=== PATIENT | male | born 1960 | race Caucasian/White ===

== ENCOUNTER 2017-08-02 18:08 | Emergency (ER) | payer MEDICARE, MEDICAID ==
[~2017-08-02] VITALS: Ht 170.2 cm; Wt 60.0 kg
[2017-08-02] MEDS ORDERED: FURO-152 PO (18:13)
[2017-08-02] MEDS ORDERED: CARV3.1242 PO (18:13)
[2017-08-02] MEDS ORDERED: ATOR10TA PO (18:13)
[2017-08-02] MEDS ORDERED: LISI2.5T47 PO (18:13)
[2017-08-02] MEDS ORDERED: ASPIRIN 325MG EC TABLET PO ONE (18:30)
[2017-08-02 19:01] LABS: BASOPHILS % 0.3 % (0.0-2.0); EOSINOPHILS % 1.1 % (0.0-5.0); HEMATOCRIT. 39.9 % (42.0-52.0); HEMOGLOBIN. 13.1 g/dL (14.0-18.0); LYMPHOCYTES % 15.2 % (20.0-50.0); MEAN CORPUSCULAR HEMOGLOBIN 30.7 pg (28.0-32.0); MEAN CORPUSCULAR VOLUME 93.3 fL (80.0-94.0); MEAN PLATELET VOLUME 8.4 fl (7.4-10.4); MONOCYTES % 6.6 % (2.0-8.0); NEUTROPHILS % 76.8 % (40.0-76.0); PLATELET 120 x1000/uL (130-400); RED BLOOD CELL COUNT 4.27 mill/uL (4.7-6.1); RED CELL DISTRIBUTION WIDTH 17.6 % (11.6-14.6)
[2017-08-02 19:08] LABS: INR 1.2; PROTHROMBIN TIME 12.1 sec (9.4-11.6)
[2017-08-02 19:19] LABS: CARBON DIOXIDE 30 mEq/L (21-32); CHLORIDE 95 mEq/L (98-107)
[2017-08-02 19:23] LABS: TROPONIN I 0.05 ng/mL (0.00-0.04)
[2017-08-02] MEDS ORDERED: FUROSEMIDE 20MG/2ML VIAL IVP ONE (19:30)
[2017-08-02] MEDS ORDERED: ENALAPRIL 2.5MG/2ML VIAL 2ML IV ONE (19:30)
[2017-08-02] MEDS ORDERED: MAGNESIUM/ALUMINUM HYDROXIDE/SIMETHICONE 30ML UDC PO PRN (21:15)
[2017-08-02] MEDS ORDERED: NA PHOS,M-B/NA PHOS,DI-BA ENEMA 118ML PR PRN (21:15)
[2017-08-02] MEDS ORDERED: IPRATROPIUM/ALBUTEROL 0.5-3(2.5)MG/3ML NEB INH PRN (21:15)
[2017-08-02] MEDS ORDERED: DOCUSATE SODIUM 100MG CAPSULE PO PRN (21:15)
[2017-08-02] MEDS ORDERED: LORAZEPAM 2MG/ML CPJ IV PRN (21:15)
[2017-08-02] MEDS ORDERED: MORPHINE SULFATE 4 MG/ML CPJ (NOT FOR IM USE) IV PRN (21:15)
[2017-08-02] MEDS ORDERED: ONDANSETRON HCL 4MG/2ML VIAL IV PRN (21:15)
[2017-08-02] MEDS ORDERED: ACETAMINOPHEN 325MG TABLET PO PRN (21:15)
[2017-08-02] MEDS ORDERED: CLONIDINE 0.1MG TABLET PO PRN (21:15)
[2017-08-02] MEDS ORDERED: GUAIFENESIN 200MG/10ML SUGAR FREE UDC PO PRN (21:15)
[2017-08-02] MEDS ORDERED: DIPHENHYDRAMINE 50MG/ML VIAL IV PRN (21:15)
[2017-08-02] MEDS ORDERED: HYDROCODONE/APAP 7.5/325MG 1 TAB TABLET PO PRN (21:15)
[2017-08-02 23:08] LABS: TROPONIN I 0.05 ng/mL (0.00-0.04)
[2017-08-03 03:45] VITALS: BP 96/72
[2017-08-03] MEDS ORDERED: ASPIRIN 81MG EC TABLET PO SCH (09:00)
[2017-08-03] MEDS ORDERED: ENOXAPARIN 30MG/0.3ML SYR SUBCUT SCH (09:00)
== END 2017-08-03 04:10 | disposition left against medical advice (07) ==
LOC: ER 19:21 → EDBEDREQ 20:00 → EDBEDREQTM 20:00 → ER 08-03 04:10 → CANBEDREQ 08-03 08:18
DX: I25.10 Atherosclerotic heart disease of native coronary artery without angina pectoris (principal); I12.0 Hypertensive chronic kidney disease with stage 5 chronic kidney disease or end stage renal disease; N18.6 End stage renal disease; E11.22 Type 2 diabetes mellitus with diabetic chronic kidney disease; E46 Unspecified protein-calorie malnutrition
CPT/HCPCS: 36415; 71045; 80048; 80053; 83880; 84484; 85025; 85610; 93005; 99285